=== PATIENT | female | born 1985 | race Caucasian/White ===

== ENCOUNTER 2021-04-23 12:17 | Emergency (ER) | payer SELFPAY ==
--- OUTSIDE RECORDS SUMMARY | 2021-04-23 12:19 | XMS REPORT | Continuity of Care Document ---
:1985 Author Organization [facility] t Address [address] [place] [address] Dr. De La Cruz [address] [place] [address] Care Team Providers Name Role Phone Pcp, Does Not Have A Primary Care Physician Arash HUTCHINSON, Ric Attending Clinician Payers Payer Name Policy Policy Number Effective Expiration Source Type Date Date [employer]ART [id number] 2020 [facility] 00:00:00 [facility] PREFERRED Branch [id number] 020-PresentPPO AETNAAETNA TRS [id number] [id number]00 [place] [facility] resentPPO Branch Problems Condition Condition Condition Status Onset Resolution Last Treating Co mments Source Name Details Category Date Date Treatment Clinician Date High-risk High-risk Disease Active Uni vers 4-21 ity of in first in first 00:00: [place] trimester trimester 00 [facility] Branch History of History of Disease Active U nivers depression depression 4-21 it y of 00:00: [place] [facility] History of History of Disease Active U nivers anxiety anxiety 4-21 ity of 00:00: [place] [facility] Attention Attention Disease Active Uni vers deficit deficit 3-05 ity of disorder disorder 00:00: [place] (ADD) in (ADD) in 00 Medica l adult adult Branch Obesity Obesity Disease Active 2016-08 Univers (BMI (BMI 2-30 ity of 30-39.9) 30-39.9) 00:00: [address] Major Major Problem Active [facility] depression depression Sakshi kes - , , Memoria recurrent recurrent l Outpati ent Clinics ADHD ADHD Problem Active [facility] (attention (attention Sakshi kes - deficit deficit Memoria hyperactiv hyperactiv l ity ity Outpati disorder), disorder), en t combined combined Clinic s type type Chronic Chronic Problem Active [facility] sinus sinus [facility] - complaints complaints Me moria l Outpati ent Clinics Benign Benign Problem Active [facility] paroxysmal paroxysmal Sakshi kes - positional positional Me moria vertigo, vertigo, l unspecifie unspecifie Ou tpati d d ent laterality laterality Cl inics Seasonal Seasonal Problem Active [facility] allergies allergies [facility] - Memoria l Outpati ent Clinics GERD GERD Problem Active [facility] (gastroeso (gastroeso Sakshi kes - phageal phageal Memoria reflux reflux l disease) disease) Outpat i ent Clinics Insomnia Insomnia Problem Active [facility] due to due to [facility] - other other Memoria mental mental l disorder disorder Outpat i ent Clinics Sciatica Sciatica Problem Active [facility] associated associated Sakshi kes - with with Memoria disorder disorder l of of Outpati lumbosacra lumbosacra en t l spine l spine Clinics Anxiety Anxiety Problem Active [facility] Poison zabrina Poison zabrina Problem Active [facility] dermatitis dermatitis Sakshi kes - Memoria l Outpati ent Clinics Dermatitis Dermatitis Problem Active [facility] Clinics Well woman Well woman Problem Active [facility] exam with exam with Luke s - routine routine Memoria gynecologi gynecologi l edelmira exam edelmira exam Outpat i ent Clinics Encounter Encounter Problem Active [facility] for for Lukes - surveillan surveillan Me moria ce of ce of l contracept contracept Ou tpati cory pills cory pills ent Clinics Abnormal Abnormal Problem Active [facility] uterine uterine [facility] - bleeding bleeding Memori a l Outpati ent Clinics Moderately Moderately Problem Active [facility] severe severe [facility] - major major Memoria depression depression l Outpati ent Clinics Acute Acute Disease Resolve 2016-082020-12-07 2020-12-08 Univers cholecysti cholecysti d 2-30 00:00:00 00:31:18 ity of tis tis 00:00: [address] Acute Acute Disease Resolve 2016-082020-12-07 2020-12-08 Univers pyelonephr pyelonephr d 00:00:00 00:31:17 ity of itis itis 00:00: [address] Allergies, Adverse Reactions, Alerts This patient has no known allergies or adverse reactions. Social History Social Habit Start Date Stop Date Quantity Comments Source ASSERTION 2020-10-17 [facility] 00:00:00 [facility] [place] [facility] Exposure to Not sure [facility] SARS-CoV-2 [facility] (event) Branch Tobacco use and 2020-12-07 2020-12-07 Never used Universit y of exposure 00:00:00 00:00:00 [facility] [place] [facility] Alcohol intake 2020-12-07 2020-12-07 Ex-drinker [facility] 00:00:00 00:00:00 (finding) [facility] [place] [facility] Alcohol Comment 2017-08-17 2017-08-17 drinks socially Univ ersity of 00:00:00 00:00:00 [facility] [place] [facility] Sex Ass[birth year] At [birth year] Universit y of 00:00:00 00:00:00 [facility] [place] [facility] Smoking Status Start Date Stop Date Source Never smoker [facility] Medications Ordered Filled Start Stop Current Ordering Indication Dosage Frequency Signature Comments Components Source Medication Medication Date Date Medication? Clinician (SIG) Name Name cephALEXin Yes Urinary 500mg Take 1 U nivers 500 mg 4-26 tract capsule by ity of capsule 00:00[place] mouth 2 [place] without (two) Medical hematuria, times Branch site daily. unspecified azithromyci Yes Non-recurre 250mg Take 1 Univers n 4-21 nt acute tablet by ity of (ZITHROMAX 00:00[place] serous [place] Z-PRANEETH[place] 250 00 otitis daily. Medic al mg tablet media of Take 500 Br anch right ear mg day 1, then 250 mg days 2 to 5. buPROPion Yes History of 150mg Take 1 Univers XL 4-21 depression tablet by ity of (WELLBUTRIN 00:00: mouth [place] XL) 150 mg 00 daily. Medical 24 hr Branch tablet ibuprofen Yes Contusion 600mg Take 1 Univers 600 mg 9-09 of left tablet by ity o f tablet 00:00: forearm, mouth [place] 00 initial every 6 Medical encounter (six) Branch hours as needed for Pain (scale 4-6). Yes Take by Unive rs vit 4-07 mouth. ity of 75/iron/fol 20:52: [place] ic/om3 (ONE 54 Medical A DAY Branch WOMEN'S DHA ORAL) busPIRone 5 2019- Yes Anxiety 5mg Take 1 U nivers mg tablet 4-07 tablet by ity o f 00:00: mouth 3 [place] 00 (three) Medical times Branch daily as needed (anxiety). dexmethylph Yes Attention 20mg Take 1 Univers enidate 20 3-27 deficit capsule by ity of mg 24 hr 00:00: disorder [place] capsule 00 (ADD) in daily. Medica l adult Branch TRI-SPRINTE 0 Yes Univer s C 2-23 ity of 0.18/0.215/ 00:00: [place] 0.25 mg-35 00 Medical mcg (28) Branch per tablet Diflucan Diflucan 2019- No David [address] [facility] 7-17 07-18 Rekhi [facility] - 00:00: 00:00 Memoria 00 :00 l Outpati ent Clinics metoprolol Yes Hypertensio 25mg Take 1 Univers succinate 5-21 n, tablet by ity o f XL 25 mg 24 00:00: unspecified mouth [place] hr tablet 00 type daily. Medical Take if BP Branch is over 130/90. Procedures This patient has no known procedures. Plan of Care Planned Activity Planned Date Details Comments Source Future Scheduled 2022-01-[address] [facility] Test 00:00:00 malignant neoplasm Medical B ranch of cervix (procedure) [code = 885724321] Future Scheduled 2021-04-19 INFLUENZA VACCINE [facility] Test 00:00:00 (Season Ended) [code Medical Branch = INFLUENZA VACCINE (Season Ended)] Future Scheduled 2005 DTaP,Tdap,and Td Univers [facility] Test 00:00:00 Vaccines (1 - Tdap) Medical Branch [code = DTaP,Tdap,and Td Vaccines (1 - Tdap)] Future Scheduled [address] [facility] Test 00:00:00 screening Medical Branch (procedure) [code = [id number]] Future Scheduled 2002 SARS-CoV-2 [facility] Test 00:00:00 (COVID-19) Vaccine Medical B ranch (1) [code = SARS-CoV-2 (COVID-19) Vaccine (1)] Future Scheduled 1998 Depression screening [facility] Test 00:00:00 (procedure) [code = Medical Branch [id number]] Encounters Start End Encounter Admission Attending Care Care Encounter Source Date/Time Date/Time Type Type Clinicians Facility Department ID 2019-03-04 2019-03-04 [facility] [id number] [facility] 14:34:00 14:34:00 [facility] 2019-02-26 2019-02-26 [facility] [id number] [facility] 11:15:00 11:15:00 t [facility] Clin[facility] 2019-02-16 2019-02-16 [facility] [id number] [facility] 16:20:00 16:20:00 t [employer] [facility] ent [facility] 2019-02-12 2019-02-12 [facility] [id number] 09:06:00 09:06:00 t [facility] 2019-02-10 2019-02-10 [facility] [id number] 09:01:00 09:01:00 t [facility] Clin[facility] 2018-09-01 2018-09-01 [facility] [id number] [address] 15:45:00 15:45:00 t [facility] Clinic [facility] Outpati ent Clinics 2018-04-15 2018-04-15 [facility] [id number] 14:02:00 14:02:00 t Women's Women's ke s - Care Care Clinic [facility] Outpati ent Clinics 2018-01-17 2018-01-17 [facility] [id number] 10:45:00 10:45:00 t [employer] [facility] ent [facility] 2017-12-31 2017-12-31 [facility] [id number] 15:30:00 15:30:00 [employer] [facility] ent Clinics Results This patient has no known results.
[2021-04-23] MEDS ORDERED: ACETAMINOPHEN 500 MG TAB ONE (14:38)
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
[2021-04-23] MEDS ORDERED: TETANUS & DIPHTHERIA TOX,ADULT 0.5 ML VIAL ONE (17:24)
--- NOTE | 2021-04-23 17:54 | RAD REPORT ---
EXAM DESCRIPTION: RAD - Chest Single View - 04/23/2021 5:07 pm CLINICAL HISTORY: pain COMPARISON: CHEST SINGLE VIEW dated 11/07/2015 FINDINGS: Lines: None. Lungs: No evidence of edema or pneumonia. Pleural: No significant pleural effusions or pneumothorax. Cardiac: The heart size is within normal limits. Bones: No acute fractures. Other: IMPRESSION: No acute cardiopulmonary disease.
--- NOTE | 2021-04-23 18:01 | RAD REPORT ---
EXAM DESCRIPTION: RAD - Hand Right 3 View - 04/23/2021 5:07 pm CLINICAL HISTORY: pain COMPARISON: No comparisons FINDINGS: No acute fracture. No significant focal degenerative changes. Ulnar minus variance. IMPRESSION: No acute osseous abnormality involving the right hand.
--- NOTE | 2021-04-23 18:07 | RAD REPORT ---
EXAM DESCRIPTION: CT - Head Brain Wo Cont - 04/23/2021 5:50 pm CLINICAL HISTORY: pain COMPARISON: No comparisons TECHNIQUE: All CT scans are performed using dose optimization technique as appropriate and may inclu de automated exposure control or mA/KV adjustment according to patient size. FINDINGS: No intracranial hemorrhage, hydrocephalus or extra-axial fluid collection.No areas of brai n edema or evidence of midline shift. The paranasal sinuses and mastoids are clear. The calvarium is intact. IMPRESSION: No acute intracranial abnormality.
[2021-04-23 19:12] VITALS: BP 122/90; TEMP 98; O2SAT 99
== END 2021-04-23 17:09 | disposition home or self-care (01) ==
LOC: ER 12:17
PROC: 0JQ00ZZ Repair Scalp Subcutaneous Tissue and Fascia, Open Approach (ICD-10-PCS; principal; 2021-04-23)
DX: O9A.212 Injury, poisoning and certain other consequences of external causes complicating pregnancy, second trimester (principal); S01.01XA Laceration without foreign body of scalp, initial encounter; S20.221A Contusion of right back wall of thorax, initial encounter; S60.221A Contusion of right hand, initial encounter; O9A.312 Physical abuse complicating pregnancy, second trimester; Z3A.26 26 weeks gestation of pregnancy; Z23 Encounter for immunization
CPT/HCPCS: 70450; 71045; 90471; 90714; 99283

== ENCOUNTER 2021-07-09 08:31 | Emergency (ER) | payer BC ==
--- OUTSIDE RECORDS SUMMARY | 2021-07-09 08:35 | XMS REPORT | Continuity of Care Document ---
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 needed (headache) . acetaminoph Yes [id number] 1{capsu Take 1 Univers en-caff-but 6-16 le} capsule by it y of albital 00:00: mouth [place] (ESGIC) per 00 every 4 Medic al capsule (four) Branch hours as needed (headache) . acetaminoph Yes [id number] 1{capsu Take 1 Univers en-caff-but 6-16 le} capsule by it y of albital 00:00: mouth [place] (ESGIC) per 00 every 4 Medic al capsule (four) Branch hours as needed (headache) . acetaminoph Yes [id number] 1{capsu Take 1 Univers en-caff-but 6-16 le} capsule by it y of albital 00:00: mouth [place] (ESGIC) per 00 every 4 Medic al capsule (four) Branch hours as needed (headache) . acetaminoph Yes [id number] 1{capsu Take 1 Univers en-caff-but 6-16 le} capsule by it y of albital 00:00: mouth [place] (ESGIC) per 00 every 4 Medic al capsule (four) Branch hours as needed (headache) . acetaminoph Yes [id number] 1{capsu Take 1 Univers en-caff-but 6-16 le} capsule by it y of albital 00:00: mouth [place] (ESGIC) per 00 every 4 Medic al capsule (four) Branch hours as needed (headache) . acetaminoph Yes [id number] 1{capsu Take 1 Univers en-caff-but 6-16 le} capsule by it y of albital 00:00: mouth [place] (ESGIC) per 00 every 4 Medic al capsule (four) Branch hours as needed (headache) . acetaminoph Yes [id number] 1{capsu Take 1 Univers en-caff-but 6-16 le} capsule by it y of albital 00:00: mouth [place] (ESGIC) per 00 every 4 Medic al capsule (four) Branch hours as needed (headache) . acetaminoph Yes [id number] 1{capsu Take 1 Univers en-caff-but 6-16 le} capsule by it y of albital 00:00: mouth [place] (ESGIC) per 00 every 4 Medic al capsule (four) Branch hours as needed (headache) . cephALEXin Yes Urinary 500mg Take 1 U [...] DAY Branch WOMEN'S DHA ORAL) busPIRone 5 Yes Anxiety 5mg Take 1 U nivers mg tablet 4-07 tablet by ity o f 00:00: mouth 3 [place] 00 (three) Medical times Branch daily as needed (anxiety). dexmethylph Yes Attention 20mg Take 1 Univers enidate 20 3-27 deficit capsule by ity of mg 24 hr 00:00: disorder [place] capsule 00 (ADD) in daily. Medica l adult Branch TRI-SPRINTE Yes Univer s C 2-23 ity of 0.18/0.215/ 00:00: [place] 0.25 mg-35 00 Medical mcg (28) Branch per tablet Diflucan Diflucan 2019- No David [address] [facility] 7-17 07-18 [facility] :[facility] Clinics metoprolol Yes Hypertensio 25mg Take 1 Univers succinate 5-21 n, tablet by nafisa crawford XL 25 mg 24 00:00: unspecified mouth [place] hr tablet 00 type daily. Medical Take if BP Branch is over 130/90. Immunizations Ordered Filled Immunization Date Status Comments [facility] e Immunization Name Name TD 2021-05-04 Completed University of 00:00:00 [facility] TD 2021-05-04 Completed University of 00:00:00 [facility] 2021-05-04 Completed University of 00:00:00 [facility] 2021-05-04 Completed University of 00:00:00 [facility] TD 2021-05-04 Completed [facility] Com[facility] of 00:00:00 [facility] 2021-05-04 Completed University of 00:00:00 [facility] TDAP 2021-05-04 Completed University of 00:00:00 [facility] 2021-05-04 Completed University of 00:00:00 [facility] 2021-05-04 Completed University of 00:00:00 [facility] Vital Signs Vital Name Observation Time Observation Value Comments Source Systolic blood 2021-07-04 13:46:00 126 mm[Hg] Univer sity of pressure [facility] Diastolic blood 2021-07-04 13:46:00 85 mm[Hg] Unive rsity of pressure [facility] Heart rate 2021-07-04 13:46:00 77 /min [facility] Body temperature 2021-07-04 13:46:00 36.5 Opal [facility] Respiratory rate 2021-07-04 13:46:00 16 /min [facility] Oxygen saturation in 2021-07-04 13:46:00 100 /min [facility] Arterial blood by [facility] [place] [facility] Pulse oximetry Branch Body height 2021-07-03 11:45:00 170.2 cm [facility] Body weight 2021-07-03 11:45:00 97.523 kg [facility] BMI 2021-07-03 11:45:00 33.67 kg/m2 [facility] Systolic blood 2021-06-26 22:40:00 133 mm[Hg] Univer sity of pressure [facility] Diastolic blood 2021-06-26 22:40:00 82 mm[Hg] Unive rsity of pressure [facility] Heart rate 2021-06-26 22:40:00 94 /min Universi ty of [facility] Body temperature 2021-06-26 22:40:00 36.[address]al [address] [facility] Respiratory rate 2021-06-26 22:40:00 18 /min Univ ersity of [facility] Body height 2021-06-26 22:40:00 170.[address] [facility] Body weight 2021-06-26 22:40:00 [address] [facility] BMI 2021-06-26 22:40:00 33.83 kg/m2 Universi ty of [facility] Systolic blood 2021-06-19 21:14:00 123 mm[Hg] Univer sity of pressure [facility] Diastolic blood 2021-06-19 21:14:00 78 mm[Hg] Unive rsity of pressure [facility] Heart rate 2021-06-19 21:14:00 103 /min Universi ty of [facility] Body temperature 2021-06-19 21:14:00 36.39 Opal [address] [facility] Respiratory rate 2021-06-19 21:14:00 18 /min Univ ersity of [facility] Body height 2021-06-19 21:14:00 170.[address] [facility] Body weight 2021-06-19 21:14:[address] [facility] BMI 2021-06-19 21:14:00 33.20 kg/m2 Universi ty [facility] Procedures Procedure Date / Time Performed Performing Clinician Sourc e CBC WITH DIFF 2021-07-04 10:30:00 [facility] CENTRAL NEURAXIAL 2021-07-03 18:02:14 [facility] [place] [facility] HB ABO GROUPING 2021-07-03 12:16:00 Katie [facility] RHO (D) IMMUNE 2021-07-03 12:16:00 [facility] CBC WITH DIFF 2021-07-03 12:12:00 Hari Wilson [facility] HEPATITIS B SURFACE 2021-07-03 12:12:00 Hari Wilson [facility] ANTIGEN Medical Branch ADC OR DEBBIE ONLY - 2021-07-03 12:12:00 Hari Wilson [facility] RPR Medical Branch HIV 1/2 AG-AB WITH 2021-07-03 12:12:00 Hari Wilson [facility] REFLEX Medical Branch CONSENT/REFUSAL FOR 2021-06-30 21:55:46 Doctor Unassigned, No [facility] DIAGNOSIS AND Name Medical [place] TREATMENT ASSIGNMENT OF BENEFITS 2021-06-30 21:53:30 Doctor Unassigned, No [facility] POCT URINALYSIS W/O 2021-06-26 00:00:00 Hari Wilson [facility] SPECIFIC GRAVITY [facility] >14 WEEKS US 2021-06-19 23:22:32 Hari Wilson [facility] LIMITED [facility] DSU PRE-OP 2021-06-19 05:01:00 Doctor Unassigned, No [facility] POCT URINALYSIS W/O 2021-06-19 00:00:00 Hari Wilson [facility] GRAVITY Medical [place] Plan of Care Planned Activity Planned Date Details Comments Source Future Scheduled 2022-01-27 Screening for [facility] Test 00:00:00 malignant neoplasm Medical B [place] of cervix (procedure) [code = 143352942] Future Scheduled 2021-04-19 INFLUENZA VACCINE [facility] Test 00:00:00 (Season Ended) [code Medical Branch = INFLUENZA VACCINE (Season Ended)] Future Scheduled 2005 DTaP,Tdap,and Td Univers [facility] Test 00:00:00 Vaccines (1 - Tdap) Medical Branch [code = DTaP,Tdap,and Td Vaccines (1 - Tdap)] Future Scheduled 2004 Hepatitis C [facility] Test 00:00:00 screening Medical Branch (procedure) [code = 122437864] Future Scheduled 2002 SARS-CoV-2 [facility] Test 00:00:00 (COVID-19) Vaccine Medical B ranch (1) [code = SARS-CoV-2 (COVID-19) Vaccine (1)] Future Scheduled 1998 Depression screening [facility] Test 00:00:00 (procedure) [code = Medical Branch [id number]] Encounters Start End Encounter Admission Attending Care Care Encounter Source Date/Time Date/Time Type Type Clinicians Facility Department ID 2021-06-19 Outpatient P [facility] [id number] Univers 15:32:25 ity [facility] 2021-06-19 Outpatient P [facility] [id number] Univers 15:29:06 ity [facility] 2021-06-16 Emergency [facility] [id number] Univers 16:38:17 ity [facility] 2021-08-07 2021-08-07 Outpatient R HARI WILSON [facility] [id number] Univers 16:15:00 16:15:00 [id number] ity [facility] 2021-07-03 2021-07-04 Inpatient P HARI WILSON [facility] CEE [id number] Univers 04:00:00 22:18:[address] [facility] 2021-07-03 2021-07-04 [facility] Sara Wilsonen [facility] 1.2.840.114 [id number] Univers 04:00:00 22:18:00 Encounter Natacha HOSKINS [id number] ity of [facility] [id number] [facility] [id number] [place] [id number] Branch 2021-07-04 2021-07-04 Anesthesia Livier [facility] 1.2.840.114 [id number] Univers 20:03:54 20:03:54 Event Raudel HOSKINS [id number] i ty of [place] 4.2.7.2.686 [facility] [id number] [place] [id number] Branch 2021-07-03 2021-07-03 Anesthesia Raudel Maier [facility] 1.2.8 40.114 [id number] Univers 11:37:00 18:20:00 Event Misti Mcgovern [id number] ity of [facility] 4.2.7.2.686 [facility] [id number] [facility] 083 Branch 2021-06-30 2021-06-30 Outpatient R [facility] [id number] Univers 16:15:00 16:15:00 [id number] ity [facility] 2021-06-30 2021-06-30 Outpatient R WILSON HARI [facility] [id number] Univers 16:15:00 16:15:[address] [facility] 2021-06-30 2021-06-30 Laboratory Only, Adc Test [facility] 1.2.840. 114 [id number] Univers 15:48:20 16:03:20 Only Hari Wilson Natacha HOSKINS [id number] ity of [place] [id number] [facility] [address] [place] 2021-06-26 2021-06-26 [facility] [id number] Univers 16:15:00 17:07:43 [facility] 2021-06-26 2021-06-26 Routine WilsonSaraarabella Larios [facility] 1.2.840.114 [id number] Univers 16:12:00 17:07:43 Lexi Melendez [id number] ity of Visit [place] [phone] Dc dical NAL [address] [facility] 2021-06-26 2021-06-26 Outpatient R ARELI [facility] [id number] Univers 16:15:00 16:15:00 LEXI [id number] ity [facility] 2021-06-22 2021-06-22 Telephone Sara Wilsonen [facility] 1.2.840.114 [id number] Univers 00:00:00 00:00:00 Natacha HOSKINS [id number] i ty of [place] [id number] Dc dical NAL 134 [facility] 2021-06-19 2021-06-19 [facility] [id number] Univers 16:00:00 16:59:22 LEXI ity [facility] 2021-06-19 2021-06-19 Routine Hari Wilson [facility] 1.2.840.114 [id number] Univers 15:58:25 16:59:22 Lexi Melendez [id number] ity of Visit [place] 4[place].2.[place] [id number] Dc dic[address] 2021-06-19 2021-06-19 Outpatient R ARELI [facility] [id number] Q-20 Univers 16:00:00 16:00:00 LEXI [id number] ity [facility] 2021-06-19 2021-06-19 Orders Doctor ARNOLD 1.2.840.114 [id number] Univers 00:00:00 00:00:00 Only Unassigned, RAVI 350.1.13.10 ity of [place] [facility] 4.2.7.2.686 Ran as [id number] [address] 2021-06-15 2021-06-15 Telephone Hari Wilson [facility] 1.2.840.114 [id number] Univers 00:00:00 00:00:00 Natacha HOSKINS 350.1.13.10 i ty of [place] [id number] Dc dicchiquita [address] 2021-06-07 2021-06-07 Telephone Hari Wilson [facility] 1.2.840.114 [id number] Univers 00:00:00 00:00:00 Natacha Hoskins 350.1.13.10 i ty [place]2.[place] [id number] Dc dical nal [address] [place] [address] 2021-06-06 2021-06-06 Outpatient R HARI WILSON [facility] [id number] Univers 16:15:00 16:15:00 [id number] ity [facility] 2021-06-06 2021-06-06 Outpatient R HARI WILSON [facility] [id number] Univers 16:15:00 16:15:00 ity [facility] 2021-06-06 2021-06-06 Outpatient R [facility] [id number] Univers 16:00:00 16:00:00 ity [facility] 2021-06-05 2021-06-05 Outpatient R HARI WILSON [facility] [id number] Univers 16:15:00 16:15:00 [id number] ity [facility] 2021-06-05 2021-06-05 [facility] [id number] Univers 16:15:00 16:15:00 ity [facility] 2021-06-01 2021-06-01 Outpatient R HARI WILSON [facility] [id number] Univers 16:15:00 16:15:00 [id number] ity [facility] 2021-05-18 2021-05-18 Outpatient HARI WILSON [facility] [id number]-20 Univers 16:15:00 16:15:00 [id number] ity [facility] 2021-05-18 2021-05-18 Outpatient R HARI WILSON [facility] [id number] Univers 16:15:00 16:15:00 ity [facility] 2021-05-15 2021-05-15 Outpatient R [facility] [id number] Univers 08:45:00 08:45:00 [id number] ity [facility] 2021-05-15 2021-05-15 Outpatient R [facility] [id number] Univers 08:45:00 08:45:00 ity [facility] 2021-05-04 2021-05-04 Outpatient R HARI WILSON [facility] [id number] Univers 14:15:00 14:15:00 [id number] ity [facility] 2021-05-04 2021-05-04 Outpatient R KATIE [facility] [id number] Univers 14:15:00 14:15:00 ity [facility] 2021-05-01 2021-05-01 [facility] [id number]-[id number] Univers 16:15:00 16:15:00 [id number] ity [facility] 2021-05-01 2021-05-01 Outpatient R WILSON [facility] [id number] Univers 16:15:00 16:15:00 ity [facility] 2021-04-17 2021-04-17 Outpatient R HARI WILSON [facility] [id number] Univers 16:00:00 16:00:00 [id number] ity [facility] 2021-04-17 2021-04-17 Outpatient R KATIE HARI [facility] [id number] Univers 16:00:00 16:00:00 ity [facility] 2021-03-29 2021-03-29 Outpatient R HARI WILSON [facility] [id number] Univers 16:15:00 16:15:00 [id number] ity [facility] 2021-03-29 2021-03-29 Outpatient R KATIE HARI [facility] [id number] Univers 16:15:00 16:15:00 ity [facility] 2021-03-06 2021-03-06 Outpatient R [facility] [id number] Univers 13:00:00 13:00:00 [id number] ity [facility] 2021-03-06 2021-03-06 Outpatient R MERRITT [facility] [id number] Univers 13:00:00 13:00:00 [facility] 2021-03-03 2021-03-03 Outpatient R [facility] [id number] Univers 09:00:00 09:00:00 [id number] ity [facility] 2021-03-03 2021-03-03 Outpatient P TINO HARPER [facility] [id number] Univers 09:00:00 09:00:00 ity [facility] 2021-03-01 2021-03-01 Outpatient R KATIE HARI [facility] [id number] Univers 15:30:00 15:30:00 [id number] ity [facility] 2021-03-01 2021-03-01 Outpatient R KATIE HARI [facility] [id number] Univers 15:30:00 15:30:00 ity [facility] 2021-02-20 2021-02-20 Outpatient R [facility] [id number] Univers 10:45:00 10:45:[id number] [facility] 2021-02-20 2021-02-20 Outpatient P [facility] [id number] Univers 10:45:00 10:45:[address] [facility] 2021-02-16 2021-02-16 Outpatient R HARI WILSON [facility] [id number] Univers 10:45:00 10:45:[id number] [facility] 2021-02-16 2021-02-16 Outpatient R HARI WILSON [facility] [id number] Univers 10:45:00 10:45:[address] [facility] 2021-02-01 2021-02-01 Outpatient R HARI WILSON [facility] [id number] Univers 10:45:00 10:45:[id number] [facility] 2021-02-01 2021-02-01 Outpatient R KATIE HARI [facility] [id number] Univers 10:45:00 10:45:[address] [facility] 2021-01-27 2021-01-27 Outpatient R [facility] [id number] Univers 08:45:00 08:45:[id number] [facility] 2021-01-27 2021-01-27 Outpatient R HARI WILSON [facility] [id number] Univers 08:45:00 08:45:[address] [facility] 2021-01-18 2021-01-18 Outpatient R [facility] [id number] Univers 09:00:00 09:00:[id number] [facility] 2021-01-04 2021-01-04 Outpatient R ARELI [facility] [id number] Univers 16:00:00 16:00:00 LEXI [id number] ity [facility] 2021-01-04 2021-01-04 Outpatient R ARELI [facility] [id number] Univers 16:00:00 16:00:00 LEXI ity [facility] 2020-12-26 2020-12-26 Outpatient R [facility] [id number] Univers 16:15:00 16:15:00 [id number] ity [facility] 2020-12-19 2020-12-19 Outpatient R HARI WILSON [facility] [id number] Univers 11:15:00 11:15:[address] [facility] 2020-12-19 2020-12-19 Outpatient R [facility] [id number] Univers 10:15:00 10:15:00 [id number] ity [facility] 2020-12-19 2020-12-19 Outpatient R [facility] [id number] Univers 10:15:00 10:15:00 ity [facility] 2020-12-16 2020-12-16 Outpatient R [facility] [id number] Univers 16:00:00 16:00:00 [id number] ity [facility] 2020-12-16 2020-12-16 Outpatient R [facility] [id number] Univers 16:00:00 16:00:00 ity [facility] 2020-12-07 2020-12-07 Outpatient R HARI WILSON [facility] [id number] Univers 14:30:00 14:30:00 [id number] ity [facility] 2020-12-07 2020-12-07 Outpatient R HARI WILSON [facility] [id number] Univers 14:30:00 14:30:00 ity [facility] 2020-12-01 2020-12-01 Outpatient R HARI WILSON [facility] [id number] Univers 14:30:00 14:30:00 [id number] ity [facility] 2020-12-01 2020-12-01 Outpatient R HARI WILSON [facility] [id number] Univers 14:30:00 14:30:00 ity [facility] 2020-06-22 2020-06-22 Outpatient R STONE, [facility] NUT [id number] Univers 00:00:00 00:00:00 EDWIGE ity [facility] 2019-11-24 2019-11-24 Outpatient R CHARLY [facility] [id number] Univers 15:45:00 15:45:00 CHRISS Antunez ity [facility] 2019-11-24 2019-11-24 Outpatient R VESELKA, [facility] [id number] Univers 15:45:00 15:45:00 CHRISS [facility] 2019-11-18 2019-11-18 Outpatient Cristhian PARKS [facility] [id number] Univers 10:30:00 10:30:00 CHRISS [facility] 2019-11-18 2019-11-18 Outpatient Cristhian PARKS [facility] [id number] Univers 10:30:00 10:30:00 CHRISS [facility] 2019-11-05 2019-11-05 Outpatient R [facility] [id number] Univers 20:15:00 20:15:00 [id number] [facility] 2019-11-05 2019-11-05 Outpatient R UNKNOWN [facility] [id number] Univers 20:15:00 20:15:00 ATTENDING [facility] 2019-10-19 2019-10-19 Outpatient Cristhian PARKS [facility] [id number] Univers 09:30:00 09:30:00 CHRISS [facility] 2019-10-19 2019-10-19 Outpatient Cristhian PARKS [facility] [id number] Univers 09:30:00 09:30:00 CHRISS [facility] 2019-03-04 2019-03-04 [facility] [id number] 14:34:00 14:34:00 [facility] Clinics 2019-02-26 2019-02-26 [facility] [id number] 11:15:00 11:15:00 [facility] Outpati ent Clinics 2019-02-16 2019-02-16 [facility] [id number] 16:20:00 16:20:[address] [facility] 2019-02-12 2019-02-12 [facility] [id number] 09:06:00 09:06:00 [facility] 2019-02-10 2019-02-10 [facility] [id number] 09:01:00 09:01:00 t Womens Womens [facility] Emergency Department L [facility] 2018-09-01 2018-09-01 [facility] [id number] 15:45:00 15:45:00 t Womens Womens [facility] 2018-04-15 2018-04-15 [facility] [id number] 14:02:00 14:02:00 t Women's [facility]'s [facility] 2018-01-17 2018-01-17 Out[facility] [id number] 10:45:00 10:45:00 t [employer] [facility] 2017-12-31 2017-12-31 Outpatient [facility] [id number] 15:30:00 15:30:00 t [facility] Results Test Description Test Time Test Comments Results Result Comments Source CBC with Differential 2021-07-04 12:18:58 Test Item Value Reference Range Interpretation Comme nts WBC (test code = 6690-2) See_Comment H [A utomated message] The system which ge nerated this result transmit ady reference range: 4.30 - 1 1.10 10*3/?L. The reference r yuri was not used to interpr et this result as normal/abnor mal. RBC (test code = 789-8) See_Comment L [Au tomated message] The system which ge nerated this result transmit ady reference range: 3.93 - 5 .25 10*6/?L. The reference r yuri was not used to interpr et this result as normal/abnor mal. HGB (test code = 718-7) 11.3 g/dL 11.6-15.0 L HCT (test code = 4544-3) 34.6 % 35.7-45.2 L MCV (test code = 787-2) 93.5 fL 80.6-95.5 MCH (test code = 785-6) 30.5 pg 25.9-32.8 MCHC (test code = 786-4) 32.7 g/dL 31.6-35.1 RDW-SD (test code = 40128-9) 47.3 fL 39.0-49.9 RDW-CV (test code = 788-0) 13.9 % 12.0-15.5 PLT (test code = 777-3) See_Comment [Au tomated message] The system which ge nerated this result transmit ady reference range: 166 - 35 8 10*3/?L. The reference range was not used to interpret th is result as normal/abnormal . MPV (test code = 23563-8) 11.2 fL 9.5-12.9 NRBC/100 WBC (test code = See_Comment [ Automated message] The [id number]) system which ge nerated this result transmit ady reference range: 0.0 - 10 .0 /100 WBCs. The reference r yuri was not used to interpr et this result as normal/abnor mal. NRBC x10^3 (test code = <0.01 See_Comment [Au tomated message] The [id number]) system which ge nerated this result transmit ady reference range: 10*3/?L. The reference range was not u sed to interpret this result as normal/abnormal . GRAN MAT (NEUT) % (test code 67.3 % = 770-8) IMM GRAN % (test code = 0.50 % [id number]) LYMPH % (test code = 736-9) 22.4 % MONO % (test code = 5905-5) 8.7 % EOS % (test code = 713-8) 0.8 % BASO % (test code = 706-2) 0.3 % GRAN MAT x10^3(ANC) (test 8.53 10*3/uL 1.88-7.09 H code = 0033878298) IMM GRAN x10^3 (test code = 0.06 10*3/uL 0.00-0.06 [id number]) LYMPH x10^3 (test code = 2.84 10*3/uL 1.32-3.29 731-0) MONO x10^3 (test code = 1.10 10*3/uL 0.33-0.92 H 742-7) EOS x10^3 (test code = 0.10 10*3/uL 0.03-0.39 711-2) BASO x10^3 (test code = 0.04 10*3/uL 0.01-0.07 704-7) Lab Interpretation (test Abnormal code = 13874-3) [facility] - [id number] 06:47:23 Test Item Value Reference Range Interpretation Comments RPR (Qualitative) (test code = Nonreactive Nonreactive 13164-2) Lab Interpretation (test code = Normal 91866-2) [facility] IMMUNE [id number] 01:29:45 Test Item Value Reference Range Interpretation Comments RHIG CANDIDATE? No- see comment Patient i s not a (test code = candidate for R hIG. Pt 5055) is Rh Positive.Perfor med at [facility] Laboratory Services - [facility] Blood [address] [place] [address] Free: [phone] A No. [id number] [facility] Surface [id number] 17:20:59 Test Item Value Reference Range Interpretation Comments HBsAg Semi-Quantitative (test code = Negative Negative 5195-3) [facility] Screen - ONCE [id number] 14:15:30 Test Item Value Reference Range Interpretation Comments ABO & RH (test code B Positive Performe d at [facility] = 20) Laboratory Serv [facility] [place], [place] [address]Toll Free: [phone] A No. [id number] IAT (test code = Negative Performed a t [facility] 1185) Laboratory Serv [facility] [place], [place] [address]Toll Free: [phone] A No. [id number] [facility]2 AG-AB WITH [id number] 14:04:03 Test Item Value Reference Range Interpretation Comments HIV Negative Negative Semi-quantitative (test code = 04825-6) KAILASH (test code = Non-reactive for HIV-1 KAILASH) antigen and HIV-1/HIV-2 antibodies. ?No laboratory evidence of HIV infection. ?Repeat in 2-4 weeks if acute HIV infection is suspected. [facility] with [id number] 12:50:00 Test Item Value Reference Range Interpretation Comments WBC (test code = See_Comment [Automated 5890-2) message] The sy stem which generated this result transmitted reference range : 4.30 - 11.10 10*3/?L. The reference range was not used to interpret this result as normal/abnormal . RBC (test code = See_Comment L [Automated 789-8) message] The sy stem which generated this result transmitted reference range : 3.93 - 5.25 10*6/?L. The reference range was not used to interpret this result as normal/abnormal . HGB (test code = 11.5 g/dL 11.6-15.0 L 718-7) HCT (test code = 35.0 % 35.7-45.2 L 4544-3) MCV (test code = 92.1 fL 80.6-95.5 787-2) MCH (test code = 30.3 pg 25.9-32.8 785-6) MCHC (test code = 32.9 g/dL 31.6-35.1 786-4) RDW-SD (test code = 46.2 fL 39.0-49.9 92205-9) RDW-CV (test code = 13.7 % 12.0-15.5 788-0) PLT (test code = See_Comment [Automated 777-3) message] The sy stem which generated this result transmitted reference range : 166 - 358 10*3/ ?L. The reference r yuri was not used to interpret this result as normal/abnormal . MPV (test code = 11.2 fL 9.5-12.9 83746-9) NRBC/100 WBC (test See_Comment [Automat ed code = 0781128399) message] The system which generated this result transmitted reference range : 0.0 - 10.0 /100 WBCs. The refer ence range was not u sed to interpret th is result as normal/abnormal . NRBC x10^3 (test code <0.01 See_Comment [Auto mated = 9032528395) message] The s ystem which generated this result transmitted reference range : 10*3/?L. The reference range was not used to interpret this result as normal/abnormal . GRAN MAT (NEUT) % 60.4 % (test code = 770-8) IMM GRAN % (test code 0.40 % = 5628839751) LYMPH % (test code = 27.0 % 736-9) MONO % (test code = 10.5 % 5905-5) EOS % (test code = 1.3 % 713-8) BASO % (test code = 0.4 % 706-2) GRAN MAT x10^3(ANC) 6.10 10*3/uL 1.88-7.09 (test code = 5524998867) IMM GRAN x10^3 (test 0.04 10*3/uL 0.00-0.06 code = 1181950388) LYMPH x10^3 (test code 2.72 10*3/uL 1.32-3.29 = 731-0) MONO x10^3 (test code 1.06 10*3/uL 0.33-0.92 H = 742-7) EOS x10^3 (test code = 0.13 10*3/uL 0.03-0.39 711-2) BASO x10^3 (test code 0.04 10*3/uL 0.01-0.07 = 704-7) Lab Interpretation Abnormal (test code = 24942-1) General acute hospital URINALYSIS W/O SPECIFIC [id number] 22:42:00 Test Item Value Reference Range Interpretation Comments POCT PH U (test code = 3254) n/a 5-8 POCT U LEUK EST (test code = 3263) n/a Negative - Negative POCT U NIT (test code = 3262) n/a Negative - Negative POCT U PROT (test code = 3259) neg Negative - Negative POCT U GLU (test code = 3256) neg Negative - Negative POCT U KETONE (test code = 3258) n/a Negative - Negative POCT U BLD (test code = 3257) n/a Negative - Negative Lab Interpretation (test code = Normal 64692-7) General acute hospital URINALYSIS W/O SPECIFIC [id number] 21:45:00 Test Item Value Reference Range Interpretation Comments POCT PH U (test code = 3254) 7 mg/dl 5-8 POCT U LEUK EST (test code = + Negative - Negative 3263) POCT U NIT (test code = 3262) neg Negative - Negative POCT U PROT (test code = 3259) neg Negative - Negative POCT U GLU (test code = 3256) neg Negative - Negative POCT U KETONE (test code = 3258) neg Negative - Negative POCT U BLD (test code = 3257) neg Negative - Negative [facility]
[2021-07-09 09:04] LABS: Absolute Lymphocytes (CBC) 2.6 K/uL (0.7-4.9); Basophils % 0.5 % (0-1.3); Hematocrit 40.1 % (36.0-45.0); Lymphocytes % 25.6 % (15.3-44.8); MPV 7.7 fL (7.6-11.3); RBC Red Blood Cell Count 4.49 M/uL (3.86-4.86)
[2021-07-09 09:09] LABS: Protime INR 1.01
[2021-07-09] MEDS ORDERED: LORazepam 2 MG/ML VIAL ONE ×2 (09:09→11:12)
[2021-07-09] MEDS ORDERED: NA CHLORIDE 0.9% 1,000 ML ONE (09:09)
[2021-07-09 09:24] LABS: ALT/SGPT 64 U/L (12-78); AST/SGOT 45 U/L (15-37); Albumin 3.1 g/dL (3.4-5.0); Alkaline Phosphatase 138 U/L (45-117); BUN Blood Urea Nitrogen 10 mg/dL (7-18); Bicarbonate 21 mmol/L (21-32); Bilirubin Direct 0.3 mg/dL (0-0.2); Bilirubin Total 1.3 mg/dL (0.2-1.0); Glucose Level 76 mg/dL (74-106); Protein, Total 7.9 g/dL (6.4-8.2); Sodium Level 142 mmol/L (136-145); Troponin (Emerg Dept Use Only) < 0.02 ng/mL (0.0-0.045)
[2021-07-09 10:00] LABS: Urine Blood 1+ (Negative); Urine Glucose Negative (Negative); Urine Protein Negative (Negative); Urine Specific Gravity 1.015 (1.005-1.030)
--- NOTE | 2021-07-09 10:07 | RAD REPORT ---
EXAM DESCRIPTION: CT - Head Brain Wo Cont - 07/09/2021 9:18 am CLINICAL HISTORY: CONFUSED COMPARISON: Head Brain Wo Cont dated 04/23/2021 TECHNIQUE: Axial 5 mm thick images of the head were obtained without IV contrast. All CT scans are performed using dose optimization technique as appropriate and may include automated exposure control or mA/KV adjustment according to patient size. FINDINGS: No intracranial hemorrhage, mass, edema or shift of mid-line structures. No acute infarcti on changes seen. No abnormal extra-axial fluid collections. Ventricles are normal. Mastoid air cells and visualized portions of the paranasal sinuses are clear. No acute bony findings. No significant change from the comparison. IMPRESSION: Negative non-contrast CT head examination.
--- NOTE | 2021-07-09 10:08 | RAD REPORT ---
EXAM DESCRIPTION: CT - Chest For Pe Angio - 07/09/2021 9:27 am CLINICAL HISTORY: CHEST PAIN, shortness of breath COMPARISON: No comparisons TECHNIQUE: Dynamically enhanced 3 mm thick images of the chest were obtained during administration o f approximately 150mL Isovue 370 IV contrast. Coronal and oblique MIP reconstruction images were gene rated and reviewed. Exam utilizes a protocol to evaluate the pulmonary arterial tree. All CT scans are performed using dose optimization technique as appropriate and may include automated exposure control or mA/KV adjustment according to patient size. FINDINGS: No pulmonary emboli are identified. The aorta as imaged shows no acute or suspicious finding. No pericardial thickening or effusion. No infiltrate or mass in the lung parenchyma. No pleural effusion or pleural thickening. No mediastinal or hilar suspicious masses. No chest wall masses or abnormal axillary lymphadenopathy. IMPRESSION: No pulmonary emboli identified. No other significant or suspicious findings.
--- NOTE | 2021-07-09 10:17 | RAD REPORT ---
EXAM DESCRIPTION: RAD - Chest Single View - 07/09/2021 9:22 am CLINICAL HISTORY: CHEST PAIN, approximately 6 days COMPARISON: April 23 TECHNIQUE: AP portable chest image was obtained 07/09/2021 9:22 am . FINDINGS: No pulmonary edema, vascular engorgement or cardiomegaly. Interstitial pattern is normal a nd unchanged. Trachea is midline. No measurable pleural effusion and no pneumothorax. No acute bony a bnormality seen. No acute aortic findings suspected. IMPRESSION: No acute cardiopulmonary process.
[2021-07-09 10:19] LABS: Urine Bacteria <20 /HPF (<20)
--- NOTE | 2021-07-09 10:38 | RAD REPORT ---
EXAM DESCRIPTION: US - Abdomen Exam Limited - 07/09/2021 10:28 am CLINICAL HISTORY: recent , abnl LFTs, eval for cholecystitis Patient gave variable history as to whether or not her gallbladder has been removed or is still intac t. The CT chest study performed on the same date did not extend far enough into the abdomen to evalua te gallbladder fossa. COMPARISON: Chest For Pe Angio dated 07/09/2021 FINDINGS: No gallbladder identified. No mass or abnormal fluid collection in the gallbladder fossa. Common bile duct is normal with no common duct stone identified. Partially imaged liver shows no focal lesion. Liver size normal with no capsule nodularity. Portal ve in shows no velocity or waveform abnormality. The pancreas is not fully evaluated. No ascites in the upper abdomen. IMPRESSION: Gallbladder is not identified and believed to be surgically absent. Biliary tree within normal limits. Partially imaged liver shows normal size with no focal lesion or portal vein abnormality.
[2021-07-09 10:39] LABS: Barbiturates NEGATIVE (NEGATIVE); Benzodiazepines NEGATIVE (NEGATIVE); Cocaine NEGATIVE (NEGATIVE); METHAMPHETAM POSITIVE (NEGATIVE); Methadone NEGATIVE (NEGATIVE); Opiates NEGATIVE (NEGATIVE); Phencyclidine NEGATIVE (NEGATIVE); THC Cannibis POSITIVE (NEGATIVE)
--- NOTE | 2021-07-09 11:05 | EDPHYS ---
Physician Documentation [facility] Name: Mira Sultana Age: 36 yrs Sex: Female : 1985 Arrival Date: 07/09/2021 Time: 08:36 Bed 17 Private MD: ED Physician Rojas Lynn HPI: 07/09 08:39 This 36 yrs old Female presents to ER via Unassigned with complaints of Chest rn pain. 08:39 The patient or guardian reports chest pain that is located primarily in the substernal rn area. The pain does not radiate. Associated signs and symptoms: Pertinent positives: dizziness, palpitations, Pertinent negatives: lower extremity swelling, shortness of breath, syncope, vomiting. The chest pain is described as a heaviness. Duration: The patient or guardian reports multiple episodes, that are intermittent. Modifying factors: The symptoms are alleviated by nothing. the symptoms are aggravated by nothing. Severity of pain: At its worst the pain was moderate in the emergency department the pain is unchanged. The patient has not experienced similar symptoms in the past. The patient has not recently seen a physician. Patient reports chest pain and palpitations that began last night after having sex. States started to feel anxious and took anxiety medication that improved her symptoms. EMS was called out but she refused transport at that time. Had sex again this morning and started to feel chest pain and palpitations once again, EMS was called and this time patient agreed for transport. Denies any drug use or trauma. States history of anxiety. Denies any fever or recent illness. States feels lightheaded and tingling over her entire body.. 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 - Social history:: Smoking status: unknown. - Family history:: not pertinent. - Hospitalizations: : No recent hospitalization is reported. ROS: 08:39 Constitutional: Negative for fever, chills, and weight loss, Eyes: Negative for injury, rn pain, redness, and discharge, ENT: Negative for injury, pain, and discharge, Neck: Negative for injury, pain, and swelling, Cardiovascular: Negative for edema Respiratory: Negative for shortness of breath, cough, wheezing, and pleuritic chest pain, Abdomen/GI: Negative for abdominal pain, vomiting, diarrhea, and constipation, Back: Negative for injury and pain, : Negative for injury, bleeding, discharge, and swelling, MS/Extremity: Negative for injury and deformity, Skin: Negative for injury, rash, and discoloration, Neuro: Negative for headache, and seizure. Exam: 08:41 Constitutional: This is a well developed, well nourished patient who is awake, alert, rn exhibiting psychomotor agitation and cannot sit still Head/Face: Normocephalic, atraumatic. Eyes: No nystagmus.periorbital areas with no swelling, redness, or edema. ENT: Dry mucous membranes Neck: Trachea midline, no thyromegaly or masses palpated, and no cervical lymphadenopathy. Supple, full range of motion without nuchal rigidity, or vertebral point tenderness. No Meningismus. Cardiovascular: Tachycardic, regular Respiratory: Hyperventilating, no retractions, clear bilateral breath sounds Abdomen/GI: Soft, non-tender Skin: Warm, dry, no rash MS/ Extremity: Pulses equal, no cyanosis. Neurovascular intact. Full, normal range of motion. Equal circumference. Neuro: Awake and alert, GCS 15, oriented to person, place, time, and situation. Cranial nerves II-XII grossly intact. Motor strength 5/5 in all extremities. Sensory grossly intact. 09:09 ECG was reviewed by the Attending Physician. rn Vital Signs: 08:45 BP 132 / 86; Pulse 80; Resp 18; Pulse Ox 100% ; sl2 09:00 BP 132 / 103; Pulse 113; Resp 26; Pulse Ox 100% on R/A; sl2 10:00 BP 132 / 88; Pulse 82; Resp 20; Pulse Ox 99% on R/A; sl2 10:15 BP 125 / 99; Pulse 64; Resp 26; Pulse Ox 100% on R/A; sl2 MDM: 08:36 Patient medically screened. 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 . 11:03 Differential diagnosis: acute pericarditis, anxiety, chest wall pain, costochondritis, rn esophagitis, gastritis, pleurisy, pneumothorax, pulmonary embolus, drug use, hyperventilation syndrome. Data reviewed: vital signs, nurses notes, lab test result(s), EKG, radiologic studies, CT scan, plain films, ultrasound, and as a result, I will discharge patient. 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 Interpretation: normal. Counseling: I had a detailed discussion with the patient and/or guardian regarding: the historical points, exam findings, and any diagnostic results supporting the discharge/admit diagnosis, lab results, radiology results, the need for outpatient follow up, to return to the emergency department if symptoms worsen or persist or if there are any questions or concerns that arise at home. Response to treatment: the patient's symptoms have markedly improved after treatment, and as a result, I will discharge patient. ED course: Pt meth +, no acute findings and blood work or imaging. CT PE negative. Will DC home and care of .. 07/09 08:37 Order name: Basic Metabolic Panel; Complete Time: 09: 07/09 08:37 Order name: CBC with Diff; Complete Time: : 07/09 08:37 Order name: LFT's; Complete Time: 09: 07/09 08:37 Order name: PT-INR; Complete Time: : 07/09 08:37 Order name: Troponin (emerg Dept Use Only); Complete Time: : 07/09 08:37 Order name: Urine Drug Screen; Complete Time: 10:40 07/09 08:37 Order name: XRAY Chest (1 view); Complete Time: : 07/09 08:37 Order name: CT Chest For PE Angio; Complete Time: : rn 07/09 08:38 Order name: CT Head Brain wo Cont; Complete Time: : 07/09 08:41 Order name: Urine Microscopic Only; Complete Time: 10: 07/09 09:50 Order name: US Abdomen Limited; Complete Time: : 07/09 09:59 Order name: Urine Dipstick-Ancillary; Complete Time: 10:33 EDMS 07/09 10:01 Order name: Urine --Ancillary (enter results) bd 07/09 08:37 Order name: EKG; Complete Time: 08:38 rn 07/09 08:37 Order name: Cardiac monitoring; Complete Time: 09:08 rn 07/09 08:37 Order name: EKG - Nurse/Tech; Complete Time: 09:08 rn 07/09 08:37 Order name: IV Saline Lock; Complete Time: 09:08 rn 07/09 08:37 Order name: Labs collected and sent; Complete Time: 09:08 rn 07/09 08:37 Order name: O2 Per Protocol; Complete Time: 09: rn 07/09 08:37 Order name: O2 Sat Monitoring; Complete Time: 09:08 rn 07/09 08:41 Order name: Urine Dipstick-Ancillary (obtain specimen); Complete Time: 10:36 rn EC:09 Rate is 68 beats/min. Rhythm is regular. QRS Pollock is Normal. FL interval is normal. QRS rn interval is normal. QT interval is normal. No Q waves. T waves are Normal. No ST changes noted. Clinical impression: Normal ECG. Interpreted by me. Reviewed by me. Administered Medications: 09:00 Drug: NS 0.9% 1000 ml Route: IV; Rate: 1000 ml; Site: left antecubital; sl2 11:09 Follow up: Response: No adverse reaction; IV Status: Completed infusion; IV Intake: sl2 1000ml 09:02 Drug: Ativan (LORazepam) 1 mg Route: IVP; Site: left antecubital; sl2 11:09 Follow up: Response: No adverse reaction sl2 11:16 Drug: Ativan (LORazepam) 1 mg Route: IVP; Site: left antecubital; sl2 13:30 Follow up: Response: No adverse reaction sl2 Disposition Summary: 07/09/21 11:04 Discharge Ordered Location: Home rn Problem: new rn Symptoms: have improved rn Condition: Stable rn Diagnosis - Chest pain, unspecified rn - Adverse effect of amphetamines rn - Dehydration rn Followup: rn - With: Private Physician - When: As needed - Reason: Recheck today's complaints, Re-evaluation by your physician Discharge Instructions: - Discharge Summary Sheet rn - Amphetamines Use Disorder rn - Nonspecific Chest Pain, Adult rn - Dehydration, Adult rn Forms: - Medication Reconciliation Form rn - Thank You Letter rn - Antibiotic rn home care - Prescription Opioid Use rn Signatures: Dispatcher [employer] Rojas Montoya MD MD rn Davies, Jonathon, RN RN jd3 Christine Lakhani RN RN sl2
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
[2021-07-09 12:54] LABS: Urine Specific Gravity/Preg 1.015 (1.005-1.030)
[2021-07-09 14:26] VITALS: BP 125/99; O2SAT 100
--- NOTE | 2021-07-12 08:13 | EKG ---
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
== END 2021-07-09 13:49 | disposition home or self-care (01) ==
LOC: ER 08:31
DX: E86.0 Dehydration (principal); T43.625A Adverse effect of amphetamines, initial encounter; F41.9 Anxiety disorder, unspecified
CPT/HCPCS: 96361; 93005; 85025; 80048; 36415; 81025; 85610; 82565; 80076; 84484; 80307; 70450; 71275; 71045; 76705; 96374; 99285; Q9967; J7030; 81003; 81015